=== PATIENT | female | born 1950 | race Caucasian/White ===

== ENCOUNTER → 2021-12-24 | Day surgery (SDC) | payer MEDICARE, OTHER ==
[~2021-12-24] VITALS: Ht 165.1 cm; Wt 47.6 kg
[~2021-12-24] MED LIST: AMOXICILLIN500 M1 PO; ANTIVERT25 MG PO; BENADRYL25 MG PO; FLUTICASONE PRO16 GM; KETOROLAC TROME10 MG PO; MIRALAX 238GM238 GM PO; NORCO 5-325 TA1 EACH PO; ONDANSETRON ODT4 MG PO; ONDANSETRON ODT4 MG SL; PERCOCET 5-3251 EACH PO; TUMS200 MG PO; ZOFRAN8 MG PO
[2021-12-24 10:47] LABS: HCT 43.5 % (37.0-47.0); HGB 14.3 g/dl (12.5-16.0); MCHC 32.9 g/dL (32.0-36.0); MCV 94.2 fL (78.0-100.0); MPV 8.9 fL (6.0-9.5); RBC 4.62 M/uL (4.20-5.40); RDW 13.2 % (11.5-14.0); WBC 10.2 K/uL (4.0-10.5)
[2021-12-24 11:04] LABS: ALBUMIN 3.2 g/dL (3.4-5.0); BILIRUBIN - TOTAL 0.5 mg/dL (0.2-1.0); BUN/CREAT RATIO (CALC) 13.1 RATIO; CREATININE 0.61 mg/dL (0.51-0.95); GLOBULIN (CALCULATION) 3.9 g/dL; POTASSIUM 3.8 mmol/L (3.5-5.1); TOTAL PROTEIN 7.1 g/dL (6.4-8.2)
== END | disposition home or self-care (01) ==
LOC: FAS 09:56
PROVIDERS: Surgery
DX: K80.11 Calculus of gallbladder with chronic cholecystitis with obstruction (principal); K66.0 Peritoneal adhesions (postprocedural) (postinfection); K82.8 Other specified diseases of gallbladder; F17.210 Nicotine dependence, cigarettes, uncomplicated; Z88.8 Allergy status to other drugs, medicaments and biological substances; Z79.899 Other long term (current) drug therapy
CPT/HCPCS: 36415; 80053; J1170; J2250; J2370; J2405; J2704; J2710; J3010; J7120; Q9967